=== PATIENT | male | born 1950 | race Hispanic/Latino ===

== ENCOUNTER → 2025-09-22 | Outpatient (CLI) | payer MEDICARE ==
--- NOTE | 2025-09-23 07:58 | HMCIMG ---
EXAM: Whole body bone scan. 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 REFERENCE EXAMINATION: None TECHNIQUE: 25.0 mCi of technetium 99m MDP intravenously. Delayed images were acquired at approximately 3 hours from tracer administration. FINDINGS: The radiopharmaceutical is seen in the expected bio distribution. Focal uptake in the body of LV3 - Suspicious for bone metastases. Increased uptake in the bilateral sterno-clavicular joint (right > left) and in body of LV4 - Likely degenerative. No other abnormal uptake noted in the entire skeleton. 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 Recommend MR correlation. /[place]
== END | disposition home or self-care (01) ==
LOC: RAH 12:41
PROVIDERS: ATTEND Urology
DX: R97.20 Elevated prostate specific antigen [PSA] (principal)
CPT/HCPCS: 78306; A9503